=== PATIENT | female | born 1970 | race Caucasian/White ===

== ENCOUNTER → 2017-11-27 | Day surgery (SDC) | payer OTHER ==
[~2017-11-27] VITALS: Ht 167.6 cm; Wt 79.8 kg
--- NOTE | 2017-11-27 17:17 | Operative Report ---
Operative/Inv Procedure Report Surgery Date: 11/27/17 Name of Procedure: Excisional biopsy of left vulvar Pre-Operative Diagnosis: Vulva lesion Post-Operative Diagnosis: SameSame Estimated Blood Loss: less than 50ml Surgeon/Valve Setter: Binh DALEY,Tierra Galarza Anesthesia: moderate sedation Operative/Procedure Note Note: Patient was taken to the operating room placed in supine position after an adequate timeout patient received moderate sedation T Amy after an adequate timeout patient received moderate sedation T vitalPatient was taken to the operating room placed in supine position. The vagina from dorsal fashion lesion was identified in the left vulva injected with Marcaine The vagina from fashion lesion was identified left. Injected with Marcaine needle tip Bovie was used to open the lesion the base of the cyst was removed all specimen was sent to pathology the base of the cyst was removed all specimen was sent to pathology the edges of the incision were reapproximated using 3 oh hemostasis was apparent the edges of the incision were reapproximated using 30 hemostasis was apparent bacitracin was applied to the surgical field patient was returned to supine position the counts correct patient was awakened from anesthesia and transferred recovery room awake alert patient was returned to supine position the counts correct patient was awakened from anesthesia and transferred recovery room awake alert bacitracin was applied to the surgical field needle tip Bovie was used to open the lesion.
== END ==
LOC: STS 02:00
DX: N90.7 Vulvar cyst (principal)
CPT/HCPCS: J2250; J3490